=== PATIENT | female | born 1970 | race Caucasian/White ===

== ENCOUNTER 2017-04-23 22:25 | Observation (INO) | payer BC ==
[2017-04-23] MEDS ORDERED: SODIUM CHLORIDE 0.9% 1000ML 1,000 ML IV SCH (23:45)
[2017-04-23 23:52] LABS: BASOPHILS % (AUTO) 1 % (0-3); EOSINOPHILS % (AUTO) 1 % (0-9); HEMATOCRIT 41 % (35-47); MEAN CORPUSCULAR HGB CONC 32.8 gm/dl (32.0-36.0); MEAN CORPUSCULAR VOLUME 91 fL (81-99); MONOCYTES % (AUTO) 5.9 % (0-12); NEUTROPHILS % (AUTO) 87.6 % (37-80)
[2017-04-23] MEDS: SODIUM CHLORIDE 0.9% FLUSH 10 ML SOL IV PRN (23:57)
[2017-04-24 00:02] LABS: ALBUMIN 3.8 gm/dl (3.4-5.0); POTASSIUM 3.8 mMol/L (3.5-5.1)
[2017-04-24] MEDS ORDERED: KETOROLAC TROMETHAMINE 30 MG/ML SOL IV ONE (00:49)
[2017-04-24] MEDS ORDERED: KETOROLAC TROMETHAMINE 30 MG/ML SOL ONE (00:50)
[2017-04-24 00:57] LABS: APPEARANCE,URINE Clear; BILIRUBIN,URINE 1+ (NEGATIVE); COLOR,URINE Yellow; GLUCOSE, URINE (UA) NEGATIVE (NEGATIVE); KETONES,URINE TRACE (NEGATIVE); LEUKOCYTE ESTERASE ,URINE NEGATIVE (NEGATIVE); NITRATE,URINE NEGATIVE (NEGATIVE); OCCULT BLOOD,URINE NEGATIVE (NEG-TRACE); PH,URINE 5.5; UROBILINOGEN,URINE 0.2 (0.2-1.0 EU)
[2017-04-24 01:09] LABS: ICTOTEST,URINE NEGATIVE (NEGATIVE)
[2017-04-24] MEDS ORDERED: DIPHENHYDRAMINE 25 MG CAP PO PRN (01:29)
[2017-04-24] MEDS ORDERED: ACETAMI/HYDROCO 325/10 TAB PO PRN (01:29)
[2017-04-24] MEDS ORDERED: ONDANSETRON HCL 4 MG/2 ML SOL IV PRN (01:33)
[2017-04-24] MEDS ORDERED: HYDROMORPHONE 1 MG/ML SYRINGE IV PRN (01:33)
[2017-04-24] MEDS ORDERED: DEXTROSE/SALINE 0.45/KCL 20MEQ 1,000 ML/1,000 ML SOL IV ONE (01:40)
[2017-04-24] MEDS ORDERED: THIAMINE 100 MG TAB PO SCH (01:45)
[2017-04-24] MEDS: KETOROLAC TROMETHAMINE 30 MG/ML SOL IV PRN ×4 (06:33→21:44)
[2017-04-24 07:41] LABS: BASOPHILS % (AUTO) 1 % (0-3); EOSINOPHILS % (AUTO) 1 % (0-9); HEMATOCRIT 34 % (35-47); MEAN CORPUSCULAR HGB CONC 33.5 gm/dl (32.0-36.0); MEAN CORPUSCULAR VOLUME 90 fL (81-99); MONOCYTES % (AUTO) 7.3 % (0-12); NEUTROPHILS % (AUTO) 82.6 % (37-80)
[2017-04-24 07:51] LABS: CALCIUM 7.9 mg/dl (8.5-10.1); POTASSIUM 3.4 mMol/L (3.5-5.1)
[2017-04-24] MEDS ORDERED: AZITHROMYCIN 250 MG TAB PO ONE (08:30)
[2017-04-24] MEDS ORDERED: SODIUM CHLORIDE 0.9% 1000ML 1,000 ML IV ONE (08:31)
[2017-04-24] MEDS ORDERED: LORAZEPAM 2 MG/ML SOL IV ONE (08:44)
[2017-04-24] MEDS ORDERED: POTASSIUM CHLORIDE 10 MEQ TER PO SCH (09:15)
[2017-04-24] MEDS ORDERED: APAP/HYDROCODONE 325/5 TAB PO PRN (09:18)
[2017-04-24] MEDS: ENOXAPARIN 40 MG SOL SC SCH (09:34)
[2017-04-24] MEDS: PANTOPRAZOLE SODIUM 40 MG ECT PO SCH (09:37)
[2017-04-24] MEDS: BACLOFEN 10 MG TAB PO SCH ×3 (09:37→21:44)
[2017-04-24] MEDS: DULOXETINE HCL 30 MG CAPSULE.DR PO SCH ×2 (09:37→21:44)
[2017-04-24] MEDS: SODIUM CHLORIDE 0.9% FLUSH 10 ML SOL IV PRN (17:32)
[2017-04-24] MEDS: ZOLPIDEM TARTRATE 5 MG TAB PO SCH ×2 (23:14→23:37)
[2017-04-25] MEDS: KETOROLAC TROMETHAMINE 30 MG/ML SOL IV PRN ×2 (03:13→10:30)
[2017-04-25] MEDS: SODIUM CHLORIDE 0.9% FLUSH 10 ML SOL IV PRN (03:13)
[2017-04-25 07:13] VITALS: BP 149/114; PULSE 79; RESP 18; TEMP 98.2; O2SAT 99
[2017-04-25 07:53] LABS: BASOPHILS % (AUTO) 1 % (0-3); EOSINOPHILS % (AUTO) 3 % (0-9); HEMATOCRIT 33 % (35-47); MEAN CORPUSCULAR VOLUME 91 fL (81-99); MONOCYTES % (AUTO) 7.9 % (0-12); NEUTROPHILS % (AUTO) 72.4 % (37-80)
[2017-04-25 08:01] LABS: ALBUMIN 2.9 gm/dl (3.4-5.0); CALCIUM 8.4 mg/dl (8.5-10.1); POTASSIUM 3.7 mMol/L (3.5-5.1)
[2017-04-25] MEDS ORDERED: AZITHROMYCIN 250 MG TAB PO SCH (09:00)
[2017-04-25] MEDS: ENOXAPARIN 40 MG SOL SC SCH (09:24)
[2017-04-25] MEDS: PANTOPRAZOLE SODIUM 40 MG ECT PO SCH (09:33)
[2017-04-25] MEDS: DULOXETINE HCL 30 MG CAPSULE.DR PO SCH (09:33)
[2017-04-25] MEDS: BACLOFEN 10 MG TAB PO SCH (09:33)
== END 2017-04-25 10:50 | disposition home or self-care (01) ==
LOC: ED 22:25 → ACUTE CARE 04-24 01:25
PROVIDERS: ADMIT Family Medicine; ATTEND Family Medicine
DX: R41.0 Disorientation, unspecified (principal); M47.816 Spondylosis without myelopathy or radiculopathy, lumbar region; Z98.82 Breast implant status; L98.492 Non-pressure chronic ulcer of skin of other sites with fat layer exposed; J18.9 Pneumonia, unspecified organism
CPT/HCPCS: 99284 ×3; 36415; 70450; 70551; 71020; 80048; 80053 ×2; 81001; 84425; 85025 ×3; 86140; J1650; J1885 ×7; J2060; 96365; 96374; 99218; 99224; J2405; A6232; J1170

== ENCOUNTER 2018-07-18 11:22 | Inpatient (IN) | payer OTHER ==
[2018-07-18] MEDS ORDERED: ALBUTEROL NEB SOL 2.5MG/3ML 1 VIAL SOL NEB PRN (13:02)
[2018-07-18] MEDS ORDERED: CYCLOBENZAPRINE 10 MG TAB PO PRN (13:15)
[2018-07-18] MEDS ORDERED: DIPHENHYDRAMINE 25 MG CAP PO PRN (13:15)
[2018-07-18] MEDS ORDERED: LIDOCAINE 5% PATCH 1 PATCH TDM TOP PRN (13:15)
[2018-07-18] MEDS ORDERED: FUROSEMIDE 20 MG TAB PO PRN (13:15)
[2018-07-18] MEDS ORDERED: CEFTRIAXONE 1 GM PDS ONE (15:02)
[2018-07-18] MEDS ORDERED: SODIUM CHLORIDE 0.9% 50 ML 50 ML IV ONE (15:03)
[2018-07-18] MEDS: CEFTRIAXONE 1 GM PDS 1 GM in SODIUM CHLORIDE 0.9% 50 ML 50 ML IV SCH (15:10)
[2018-07-18] MEDS: SOLUMEDROL 125 MG/2 ML 125 MG/2 ML PDS IV SCH ×2 (15:11→20:38)
[2018-07-18] MEDS: GABAPENTIN 300 MG CAP PO SCH ×2 (15:12→20:29)
[2018-07-18] MEDS: ALBUTEROL/IPRATROPIUM 1 VIAL SOL INH SCH ×3 (15:13→20:28)
[2018-07-18] MEDS: APAP/HYDROCODONE 1 EACH TABLET PO PRN ×2 (15:20→20:29)
[2018-07-18] MEDS: METOPROLOL SUCCINATE 50 MG ER TAB PO SCH (15:21)
[2018-07-18] MEDS: PANTOPRAZOLE SODIUM 40 MG ECT PO SCH ×2 (15:22→20:28)
[2018-07-18] MEDS: ENOXAPARIN 40 MG SOL SC SCH (15:24)
[2018-07-18] MEDS: AZITHROMYCIN 250 MG TAB PO SCH (15:54)
[2018-07-18] MEDS: TAMSULOSIN HYDROCHLORIDE 0.4 MG CAP PO SCH (20:28)
[2018-07-18] MEDS: DULOXETINE HCL 30 MG CAPSULE.DR PO SCH (20:28)
[2018-07-18] MEDS: TEMAZEPAM 15MG 15 MG CAP PO PRN (20:29)
[2018-07-19] MEDS ORDERED: CEFTRIAXONE 1 GM PDS ONE ×2 (00:38→13:30)
[2018-07-19] MEDS ORDERED: SODIUM CHLORIDE 0.9% 50 ML 50 ML IV ONE ×2 (00:38→13:30)
[2018-07-19] MEDS: ALBUTEROL/IPRATROPIUM 1 VIAL SOL INH SCH ×6 (00:53→20:44)
[2018-07-19] MEDS: CEFTRIAXONE 1 GM PDS 1 GM in SODIUM CHLORIDE 0.9% 50 ML 50 ML IV SCH ×2 (00:55→13:35)
[2018-07-19] MEDS: APAP/HYDROCODONE 1 EACH TABLET PO PRN ×4 (04:20→20:58)
[2018-07-19] MEDS: SOLUMEDROL 125 MG/2 ML 125 MG/2 ML PDS IV SCH ×3 (04:38→20:55)
[2018-07-19] MEDS: SODIUM CHLORIDE 0.9% FLUSH 10 ML SOL IV SCH ×3 (04:39→20:45)
[2018-07-19] MEDS: DULOXETINE HCL 30 MG CAPSULE.DR PO SCH ×2 (09:05→20:45)
[2018-07-19] MEDS: FOLIC ACID 1 MG TAB PO SCH (09:05)
[2018-07-19] MEDS: MULTIVITAMIN2 1 EA TAB PO SCH (09:06)
[2018-07-19] MEDS: PANTOPRAZOLE SODIUM 40 MG ECT PO SCH ×2 (09:06→20:44)
[2018-07-19] MEDS: FUROSEMIDE 20 MG TAB PO SCH (09:06)
[2018-07-19] MEDS: METOPROLOL SUCCINATE 50 MG ER TAB PO SCH (09:06)
[2018-07-19] MEDS: GABAPENTIN 300 MG CAP PO SCH ×3 (09:06→20:45)
[2018-07-19] MEDS: CHOLECALCIFEROL 1,000 IU TAB PO SCH (09:07)
[2018-07-19] MEDS: ENOXAPARIN 40 MG SOL SC SCH (13:14)
[2018-07-19] MEDS: AZITHROMYCIN 250 MG TAB PO SCH (15:33)
[2018-07-19] MEDS: TAMSULOSIN HYDROCHLORIDE 0.4 MG CAP PO SCH (20:45)
[2018-07-19] MEDS: TEMAZEPAM 15MG 15 MG CAP PO PRN (20:58)
[2018-07-20] MEDS: ALBUTEROL/IPRATROPIUM 1 VIAL SOL INH SCH ×3 (00:08→08:53)
[2018-07-20] MEDS ORDERED: SODIUM CHLORIDE 0.9% 50 ML 50 ML IV ONE (01:15)
[2018-07-20] MEDS ORDERED: CEFTRIAXONE 1 GM PDS ONE (01:15)
[2018-07-20] MEDS: CEFTRIAXONE 1 GM PDS 1 GM in SODIUM CHLORIDE 0.9% 50 ML 50 ML IV SCH (01:21)
[2018-07-20] MEDS: SODIUM CHLORIDE 0.9% FLUSH 10 ML SOL IV SCH ×2 (01:24→06:23)
[2018-07-20 08:03] VITALS: BP 130/75; TEMP 98
[2018-07-20] MEDS: APAP/HYDROCODONE 1 EACH TABLET PO PRN (08:44)
[2018-07-20] MEDS: DULOXETINE HCL 30 MG CAPSULE.DR PO SCH (08:49)
[2018-07-20] MEDS: MULTIVITAMIN2 1 EA TAB PO SCH (08:49)
[2018-07-20] MEDS: PANTOPRAZOLE SODIUM 40 MG ECT PO SCH (08:49)
[2018-07-20] MEDS: GABAPENTIN 300 MG CAP PO SCH (08:49)
[2018-07-20] MEDS: CHOLECALCIFEROL 1,000 IU TAB PO SCH (08:49)
[2018-07-20] MEDS: METOPROLOL SUCCINATE 50 MG ER TAB PO SCH (08:50)
[2018-07-20] MEDS: FOLIC ACID 1 MG TAB PO SCH (08:50)
[2018-07-20] MEDS: FUROSEMIDE 20 MG TAB PO SCH (08:50)
[2018-07-20 09:14] VITALS: PULSE 98; RESP 20; O2SAT 96
[2018-08-07] MEDS ORDERED: CYANOCOBALAMIN 1000 MCG/ML SOL IM SCH (09:00)
== END 2018-07-20 12:35 | disposition home or self-care (01) | DRG 194 ==
LOC: ACUTE CARE 11:25
PROVIDERS: ADMIT Family Medicine; ATTEND Family Medicine
DX: J18.9 Pneumonia, unspecified organism (principal); J45.901 Unspecified asthma with (acute) exacerbation; R06.2 Wheezing; R53.81 Other malaise; I12.9 Hypertensive chronic kidney disease with stage 1 through stage 4 chronic kidney disease, or unspecified chronic kidney disease; N18.3 Chronic kidney disease, stage 3 (moderate)
CPT/HCPCS: 94150; 94640; 94664; J0696; J1650; J2930; J7613; A9270-GY

== ENCOUNTER 2018-07-29 13:07 | Inpatient (IN) | payer OTHER ==
[2018-07-29] MEDS ORDERED: LEVOFLOXACIN 25 MG/ML 750 MG in SODIUM CHLORIDE 0.9% 250 ML 150 ML IV SCH (14:00)
[2018-07-29] MEDS ORDERED: LEVOFLOXACIN 25 MG/ML SOL IV ONE (14:09)
[2018-07-29] MEDS ORDERED: SODIUM CHLORIDE 0.9% 250 ML 250 ML IV ONE (14:09)
[2018-07-29] MEDS ORDERED: ALBUTEROL NEB SOL 2.5MG/3ML 1 VIAL SOL NEB PRN (14:30)
[2018-07-29] MEDS: ALBUTEROL/IPRATROPIUM 1 VIAL SOL INH SCH ×2 (14:40→20:20)
[2018-07-29] MEDS: SODIUM CHLORIDE 0.9% FLUSH 10 ML SOL IV SCH ×2 (14:44→20:23)
[2018-07-29] MEDS ORDERED: ONDANSETRON 4 MG ODT BU PRN (18:09)
[2018-07-29] MEDS ORDERED: ZOLPIDEM TARTRATE 5 MG TAB PO PRN (23:55)
[2018-07-30] MEDS ORDERED: DICLOFENAC SODIUM APPL TD PRN (01:04)
[2018-07-30] MEDS ORDERED: ALBUTEROL HFA 60 PUFF/INHALER INH PRN (01:04)
[2018-07-30] MEDS ORDERED: TEMAZEPAM 15MG 15 MG CAP PO PRN (01:04)
[2018-07-30] MEDS ORDERED: CYCLOBENZAPRINE 10 MG TAB PO PRN (01:04)
[2018-07-30] MEDS ORDERED: ACETAMI/HYDROCO 325/10 TAB PO PRN (01:04)
[2018-07-30] MEDS ORDERED: NAPROXEN 500 MG TAB PO PRN (01:04)
[2018-07-30] MEDS: SODIUM CHLORIDE 0.9% FLUSH 10 ML SOL IV SCH ×4 (02:42→20:49)
[2018-07-30 07:12] LABS: BASOPHILS % (AUTO) 1 % (0-3); EOSINOPHILS % (AUTO) 4 % (0-9); HEMATOCRIT 36 % (35-47); HEMOGLOBIN 11.6 gm/dl (12.0-15.5); LYMPHOCYTES % (AUTO) 21.7 % (10-50); MEAN CORPUSCULAR HEMOGLOBIN 29.3 pg (27.0-32.0); MEAN CORPUSCULAR HGB CONC 32.1 gm/dl (32.0-36.0); MEAN CORPUSCULAR VOLUME 91 fL (81-99); MONOCYTES % (AUTO) 5.1 % (0-12); NEUTROPHILS % (AUTO) 68.7 % (37-80)
[2018-07-30 07:22] LABS: CALCIUM 8.8 mg/dl (8.5-10.1); CARBON DIOXIDE 33.6 mEq/L (21-32); CREATININE 1.07 mg/dl (0.60-1.00); POTASSIUM 4.2 mMol/L (3.5-5.1)
[2018-07-30] MEDS ORDERED: Non-Formulary Medication MISC (Budesonide/Formoterol 160/4.5 2 PUFF) INH SCH (09:00)
[2018-07-30] MEDS ORDERED: PANTOPRAZOLE SODIUM 40 MG ECT PO SCH (09:00)
[2018-07-30] MEDS: GABAPENTIN 300 MG CAP PO SCH ×3 (09:17→20:51)
[2018-07-30] MEDS: CHOLECALCIFEROL 1,000 IU TAB PO SCH ×2 (09:17→20:47)
[2018-07-30] MEDS: DULOXETINE HCL 30 MG CAPSULE.DR PO SCH ×2 (09:17→20:50)
[2018-07-30] MEDS: FOLIC ACID 1 MG TAB PO SCH (09:17)
[2018-07-30] MEDS: METOPROLOL SUCCINATE 50 MG ER TAB PO SCH (09:18)
[2018-07-30] MEDS: LIDOCAINE 5% PATCH 1 PATCH TDM TOP PRN (09:20)
[2018-07-30] MEDS: APAP/HYDROCODONE 1 EACH TABLET PO PRN ×3 (09:21→18:56)
[2018-07-30] MEDS: ALBUTEROL/IPRATROPIUM 1 VIAL SOL NEB SCH ×4 (09:22→20:51)
[2018-07-30] MEDS: FUROSEMIDE 20 MG TAB PO SCH (09:31)
[2018-07-30] MEDS: MULTIVITAMIN2 1 EA TAB PO SCH (11:15)
[2018-07-30] MEDS: LEVOFLOXACIN 500 MG (PREMIX) 500 MG/100 ML SOL IV SCH (13:59)
[2018-07-30] MEDS: PANTOPRAZOLE SODIUM 40 MG ECT PO SCH (20:48)
[2018-07-30] MEDS: BUDESONIDE/FORMOTEROL 160/4.5 AER INH SCH (20:51)
[2018-07-30] MEDS ORDERED: ZOLPIDEM TARTRATE 12.5 MG PO SCH (21:00)
[2018-07-30] MEDS ORDERED: TAMSULOSIN HYDROCHLORIDE 0.4 MG CAP PO SCH (21:00)
[2018-07-31] MEDS: SODIUM CHLORIDE 0.9% FLUSH 10 ML SOL IV SCH ×2 (04:56→13:55)
[2018-07-31] MEDS: APAP/HYDROCODONE 1 EACH TABLET PO PRN ×2 (05:02→09:01)
[2018-07-31 07:15] VITALS: BP 103/70; TEMP 97.9
[2018-07-31 07:21] LABS: CALCIUM 8.6 mg/dl (8.5-10.1); CARBON DIOXIDE 31.6 mEq/L (21-32); CREATININE 1.23 mg/dl (0.60-1.00)
[2018-07-31 07:23] LABS: BASOPHILS % (AUTO) 1 % (0-3); EOSINOPHILS % (AUTO) 3 % (0-9); HEMATOCRIT 36 % (35-47); HEMOGLOBIN 11.7 gm/dl (12.0-15.5); MEAN CORPUSCULAR HEMOGLOBIN 29.5 pg (27.0-32.0); MEAN CORPUSCULAR HGB CONC 32.7 gm/dl (32.0-36.0); MEAN CORPUSCULAR VOLUME 90 fL (81-99); MONOCYTES % (AUTO) 6.4 % (0-12); NEUTROPHILS % (AUTO) 66.4 % (37-80)
[2018-07-31] MEDS: ALBUTEROL/IPRATROPIUM 1 VIAL SOL NEB SCH ×3 (08:18→18:57)
[2018-07-31] MEDS: CHOLECALCIFEROL 1,000 IU TAB PO SCH (08:48)
[2018-07-31] MEDS: MULTIVITAMIN2 1 EA TAB PO SCH (08:48)
[2018-07-31] MEDS: PANTOPRAZOLE SODIUM 40 MG ECT PO SCH (08:48)
[2018-07-31] MEDS: METOPROLOL SUCCINATE 50 MG ER TAB PO SCH (08:48)
[2018-07-31] MEDS: FUROSEMIDE 20 MG TAB PO SCH (08:48)
[2018-07-31] MEDS: DULOXETINE HCL 30 MG CAPSULE.DR PO SCH (08:48)
[2018-07-31] MEDS: FOLIC ACID 1 MG TAB PO SCH (08:48)
[2018-07-31] MEDS: GABAPENTIN 300 MG CAP PO SCH ×2 (08:48→13:49)
[2018-07-31] MEDS: BUDESONIDE/FORMOTEROL 160/4.5 AER INH SCH (08:49)
[2018-07-31] MEDS: LIDOCAINE 5% PATCH 1 PATCH TDM TOP PRN (09:01)
[2018-07-31 13:31] VITALS: PULSE 90
[2018-07-31] MEDS: LEVOFLOXACIN 500 MG (PREMIX) 500 MG/100 ML SOL IV SCH (13:55)
[2018-07-31 14:11] VITALS: RESP 14; O2SAT 96
[2018-08-07] MEDS ORDERED: CYANOCOBALAMIN 1000 MCG/ML SOL IM SCH (09:00)
== END 2018-07-31 17:00 | disposition home or self-care (01) | DRG 195 ==
LOC: ACUTE CARE 13:19
PROVIDERS: ADMIT Family Medicine; ATTEND Family Medicine
DX: J18.1 Lobar pneumonia, unspecified organism (principal); R06.02 Shortness of breath; R50.9 Fever, unspecified
CPT/HCPCS: 36415; 80048; 85025; 85378; 87040; 94150; 94640; 94664; 94669; J1956; J7613; A9270-GY

== ENCOUNTER 2018-11-03 10:48 | Inpatient (IN) | payer OTHER ==
[2018-11-03] MEDS ORDERED: ALBUTEROL/IPRATROPIUM 1 VIAL SOL INH ONE (11:01)
[2018-11-03] MEDS ORDERED: ALBUTEROL/IPRATROPIUM 1 VIAL SOL ONE ×2 (11:02→11:22)
[2018-11-03] MEDS ORDERED: SOLUMEDROL 125 MG/2 ML 125 MG/2 ML PDS IV ONE (11:04)
[2018-11-03] MEDS: ALBUTEROL/IPRATROPIUM 1 VIAL SOL INH ONE ×2 (11:04→11:40)
[2018-11-03 11:25] LABS: BASOPHILS % (AUTO) 1 % (0-3); EOSINOPHILS % (AUTO) 3 % (0-9); HEMATOCRIT 39 % (35-47); LYMPHOCYTES % (AUTO) 8.1 % (10-50); MEAN CORPUSCULAR HEMOGLOBIN 28.9 pg (27.0-32.0); MEAN CORPUSCULAR HGB CONC 30.8 gm/dl (32.0-36.0); MEAN CORPUSCULAR VOLUME 94 fL (81-99); MONOCYTES % (AUTO) 3.3 % (0-12); NEUTROPHILS % (AUTO) 85.3 % (37-80)
[2018-11-03] MEDS ORDERED: SOLUMEDROL 125 MG/2 ML 125 MG/2 ML PDS ONE (11:28)
[2018-11-03 11:40] LABS: BLOOD UREA NITROGEN 27 mg/dl (7-18); CALCIUM 9.8 mg/dl (8.5-10.1); CARBON DIOXIDE 30.2 mEq/L (21-32); CHLORIDE 101 mMol/L (98-107); CREATININE 1.13 mg/dl (0.60-1.00); GLUCOSE 120 mg/dl (74-106); SODIUM 138 mMol/L (136-145); TROP I < 0.017 ng/ml (0.000-0.056)
[2018-11-03 12:00] LABS: CRP INFLAMMATORY 31.22 mg/dl (0.00-0.33)
[2018-11-03] MEDS ORDERED: SODIUM CHLORIDE 0.9% 1000ML 1,000 ML IV SCH (12:15)
[2018-11-03 13:58] LABS: APPEARANCE,URINE Slightly Cloudy; BILIRUBIN,URINE NEGATIVE (NEGATIVE); COLOR,URINE Yellow; GLUCOSE, URINE (UA) NEGATIVE (NEGATIVE); KETONES,URINE NEGATIVE (NEGATIVE); LEUKOCYTE ESTERASE ,URINE TRACE (NEGATIVE); NITRATE,URINE NEGATIVE (NEGATIVE); OCCULT BLOOD,URINE NEGATIVE (NEG-TRACE); PH,URINE 6.5; UROBILINOGEN,URINE 0.2 (0.2-1.0 EU)
[2018-11-03 14:15] LABS: BACTERIA TRACE (< 1+); CRYSTALS NEGATIVE (0-3 AVE/HPF); RBC,URINE NEG (0-3AV/HPF)
[2018-11-03] MEDS ORDERED: VANCOMYCIN HCL 500 MG PDS 1,500 MG in SODIUM CHLORIDE 0.9% 500 ML 500 ML IV SCH (14:15)
[2018-11-03] MEDS ORDERED: VANCOMYCIN HYDROCHLORIDE 500 MG PDS IV ONE (14:31)
[2018-11-03 15:13] LABS: INFLUENZA A NEGATIVE (NEGATIVE); INFLUENZA B NEGATIVE (NEGATIVE)
[2018-11-03] MEDS ORDERED: ALBUTEROL NEB SOL 2.5MG/3ML 1 VIAL SOL NEB PRN (16:36)
[2018-11-03] MEDS ORDERED: LEVOFLOXACIN 750MG/150 ML (PM) 750 MG/150 ML SOL IV SCH (17:45)
[2018-11-03] MEDS ORDERED: LEVOFLOXACIN 25 MG/ML SOL IV ONE (18:35)
[2018-11-03] MEDS: ALBUTEROL/IPRATROPIUM 1 VIAL SOL INH SCH (18:42)
[2018-11-03] MEDS ORDERED: CYANOCOBALAMIN 1000 MCG/ML SOL IM SCH (18:45)
[2018-11-03] MEDS: SODIUM CHLORIDE 0.9% 1000ML 1,000 ML IV SCH (18:54)
[2018-11-03] MEDS ORDERED: APAP/HYDROCODONE 1 EACH TABLET ONE (21:42)
[2018-11-03] MEDS: DULOXETINE HCL 30 MG CAPSULE.DR PO SCH (21:52)
[2018-11-03] MEDS: ALBUTEROL/IPRATROPIUM 1 VIAL SOL NEB SCH (21:53)
[2018-11-03] MEDS: PANTOPRAZOLE SODIUM 40 MG ECT PO SCH (21:54)
[2018-11-03] MEDS: GABAPENTIN 300 MG CAP PO SCH (21:54)
[2018-11-03] MEDS: SOLUMEDROL 125 MG/2 ML 125 MG/2 ML PDS IV SCH (21:56)
[2018-11-03] MEDS: ZOLPIDEM TARTRATE 5 MG TAB PO PRN (21:57)
[2018-11-03] MEDS: BUDESONIDE/FORMOTEROL 160/4.5 AER INH SCH (21:58)
[2018-11-03] MEDS: ACETAMI/HYDROCO 325/10 TAB PO PRN (22:12)
[2018-11-04] MEDS: ALBUTEROL/IPRATROPIUM 1 VIAL SOL INH SCH (00:03)
[2018-11-04] MEDS: SOLUMEDROL 125 MG/2 ML 125 MG/2 ML PDS IV SCH ×4 (02:49→20:21)
[2018-11-04] MEDS: SODIUM CHLORIDE 0.9% 1000ML 1,000 ML IV SCH ×2 (06:48→18:05)
[2018-11-04 07:18] LABS: BASOPHILS % (AUTO) 0 % (0-3); EOSINOPHILS % (AUTO) 0 % (0-9); HEMATOCRIT 36 % (35-47); LYMPHOCYTES % (AUTO) 3.7 % (10-50); MEAN CORPUSCULAR HEMOGLOBIN 28.7 pg (27.0-32.0); MEAN CORPUSCULAR HGB CONC 30.6 gm/dl (32.0-36.0); MEAN CORPUSCULAR VOLUME 94 fL (81-99); MONOCYTES % (AUTO) 1.7 % (0-12); NEUTROPHILS % (AUTO) 94.5 % (37-80)
[2018-11-04 07:25] LABS: ALBUMIN 2.8 gm/dl (3.4-5.0); BILIRUBIN,TOTAL 0.5 mg/dl (0.2-1.0); CALCIUM 8.9 mg/dl (8.5-10.1); CARBON DIOXIDE 29.1 mEq/L (21-32); CREATININE 1.04 mg/dl (0.60-1.00); POTASSIUM 4.1 mMol/L (3.5-5.1); TOTAL PROTEIN 6.7 gm/dl (6.4-8.2)
[2018-11-04] MEDS: GABAPENTIN 300 MG CAP PO SCH ×3 (08:15→20:19)
[2018-11-04] MEDS: DULOXETINE HCL 30 MG CAPSULE.DR PO SCH ×2 (08:15→20:18)
[2018-11-04] MEDS: PANTOPRAZOLE SODIUM 40 MG ECT PO SCH ×2 (08:16→20:19)
[2018-11-04] MEDS: FOLIC ACID 1 MG TAB PO SCH (08:16)
[2018-11-04] MEDS: METOPROLOL SUCCINATE 50 MG ER TAB PO SCH (08:20)
[2018-11-04] MEDS: ALBUTEROL/IPRATROPIUM 1 VIAL SOL NEB SCH ×4 (08:23→20:23)
[2018-11-04] MEDS ORDERED: APAP/HYDROCODONE 1 EACH TABLET ONE (08:36)
[2018-11-04] MEDS: ACETAMI/HYDROCO 325/10 TAB PO PRN (08:38)
[2018-11-04] MEDS ORDERED: CEFTRIAXONE 1 GM PDS 2 GM in SODIUM CHLORIDE 0.9% 100 ML 100 ML IV ONE (09:31)
[2018-11-04] MEDS ORDERED: SODIUM CHLORIDE 0.9% 100 ML 100 ML IV ONE (10:11)
[2018-11-04] MEDS ORDERED: CEFTRIAXONE 1 GM PDS ONE (10:11)
[2018-11-04] MEDS: BUDESONIDE/FORMOTEROL 160/4.5 AER INH SCH ×2 (10:20→20:18)
[2018-11-04] MEDS: METRONIDAZOLE 500 MG (PREMIX) 500 MG/100 ML SOL IV SCH ×2 (11:33→18:01)
[2018-11-04] MEDS: OXYCODONE HYDROCHLORIDE 5 MG TAB PO SCH ×2 (13:28→20:20)
[2018-11-04] MEDS ORDERED: OXYCODONE HYDROCHLORIDE 5 MG TAB PO SCH ×2 (14:00→23:30)
[2018-11-05] MEDS: METRONIDAZOLE 500 MG (PREMIX) 500 MG/100 ML SOL IV SCH ×3 (01:29→18:07)
[2018-11-05] MEDS: ALBUTEROL NEB SOL 2.5MG/3ML 1 VIAL SOL NEB PRN ×4 (02:53→14:28)
[2018-11-05] MEDS: SOLUMEDROL 125 MG/2 ML 125 MG/2 ML PDS IV SCH ×2 (02:53→09:57)
[2018-11-05] MEDS: SODIUM CHLORIDE 0.9% 1000ML 1,000 ML IV SCH (05:40)
[2018-11-05 07:16] LABS: CALCIUM 8.8 mg/dl (8.5-10.1); CARBON DIOXIDE 26.5 mEq/L (21-32); CREATININE 1.04 mg/dl (0.60-1.00); POTASSIUM 4.2 mMol/L (3.5-5.1)
[2018-11-05 07:18] LABS: BASOPHILS % (AUTO) 0 % (0-3); EOSINOPHILS % (AUTO) 0 % (0-9); HEMATOCRIT 35 % (35-47); HEMOGLOBIN 11.2 gm/dl (12.0-15.5); LYMPHOCYTES % (AUTO) 3.1 % (10-50); MEAN CORPUSCULAR HEMOGLOBIN 29.4 pg (27.0-32.0); MEAN CORPUSCULAR HGB CONC 31.6 gm/dl (32.0-36.0); MEAN CORPUSCULAR VOLUME 93 fL (81-99); NEUTROPHILS % (AUTO) 93.7 % (37-80)
[2018-11-05] MEDS: PANTOPRAZOLE SODIUM 40 MG ECT PO SCH ×2 (09:42→20:51)
[2018-11-05] MEDS: DULOXETINE HCL 30 MG CAPSULE.DR PO SCH ×2 (09:45→20:51)
[2018-11-05] MEDS: GABAPENTIN 300 MG CAP PO SCH ×3 (09:45→20:52)
[2018-11-05] MEDS: FOLIC ACID 1 MG TAB PO SCH (09:46)
[2018-11-05] MEDS: METOPROLOL SUCCINATE 50 MG ER TAB PO SCH (09:47)
[2018-11-05] MEDS: OXYCODONE HYDROCHLORIDE 5 MG TAB PO SCH ×3 (09:54→19:55)
[2018-11-05] MEDS: BUDESONIDE/FORMOTEROL 160/4.5 AER INH SCH ×2 (10:19→20:50)
[2018-11-05] MEDS ORDERED: CEFEPIME HYDROCHLORIDE 2 GM PDS IV SCH (10:45)
[2018-11-05] MEDS: ALBUTEROL/IPRATROPIUM 1 VIAL SOL NEB SCH ×4 (12:40→20:53)
[2018-11-05] MEDS ORDERED: ACETAMINOPHEN 325 MG PO PRN (13:03)
[2018-11-05] MEDS: CEFEPIME HYDROCHLORIDE 2 GM PDS IV SCH (17:28)
[2018-11-05] MEDS: ZOLPIDEM TARTRATE 5 MG TAB PO PRN (21:05)
[2018-11-06] MEDS ORDERED: OXYCODONE HYDROCHLORIDE 5 MG TAB PO SCH
[2018-11-06] MEDS: METRONIDAZOLE 500 MG (PREMIX) 500 MG/100 ML SOL IV SCH (01:34)
[2018-11-06] MEDS: ALBUTEROL NEB SOL 2.5MG/3ML 1 VIAL SOL NEB PRN (04:49)
[2018-11-06] MEDS: CEFEPIME HYDROCHLORIDE 2 GM PDS IV SCH (05:22)
[2018-11-06] MEDS: OXYCODONE HYDROCHLORIDE 5 MG TAB PO SCH (06:06)
[2018-11-06 07:50] VITALS: BP 137/90; TEMP 97.6
[2018-11-06] MEDS: ALBUTEROL/IPRATROPIUM 1 VIAL SOL NEB SCH (08:21)
[2018-11-06] MEDS: METOPROLOL SUCCINATE 50 MG ER TAB PO SCH (08:23)
[2018-11-06] MEDS: GABAPENTIN 300 MG CAP PO SCH (08:23)
[2018-11-06] MEDS: DULOXETINE HCL 30 MG CAPSULE.DR PO SCH (08:23)
[2018-11-06 08:24] VITALS: RESP 24
[2018-11-06] MEDS: PANTOPRAZOLE SODIUM 40 MG ECT PO SCH (08:24)
[2018-11-06] MEDS: FOLIC ACID 1 MG TAB PO SCH (08:24)
[2018-11-06] MEDS: BUDESONIDE/FORMOTEROL 160/4.5 AER INH SCH (08:26)
[2018-11-06] MEDS ORDERED: ONDANSETRON HCL 4 MG/2 ML SOL IV PRN (08:49)
[2018-11-06] MEDS ORDERED: ENOXAPARIN 40 MG SOL SC ONE (08:54)
[2018-11-06 09:00] VITALS: O2SAT 90
[2018-11-06] MEDS ORDERED: ENOXAPARIN SODIUM 120 MG/0.8 ML SYRINGE SQ SCH (09:00)
[2018-11-06] MEDS ORDERED: PREDNISONE 20 MG TAB PO SCH (09:00)
[2018-11-06 09:01] VITALS: PULSE 94
[2018-11-06 09:03] LABS: ABG PH 7.4 (7.35-7.45)
== END 2018-11-06 09:18 | disposition short-term general hospital (02) | DRG 194 ==
LOC: ED 10:48 → UNDOADMIN 15:33 → ACUTE CARE 15:33
PROVIDERS: ADMIT Family Medicine; ATTEND Family Medicine
DX: J18.1 Lobar pneumonia, unspecified organism (principal); N17.9 Acute kidney failure, unspecified; R06.02 Shortness of breath; G89.29 Other chronic pain; I10 Essential (primary) hypertension; K21.9 Gastro-esophageal reflux disease without esophagitis; R55 Syncope and collapse
CPT/HCPCS: 36415; 36600; 71045; 71046; 71275; 80048; 80053; 81001; 82803; 83880; 84484; 85025; 85378; 87088; 87280; 87430; 87804; 93005; 94150; 94640; 94669; 94762; 99070; 99285; J0692; J0696; J1650; J1956; J2405; J2930; J3370; J3420; J7613; Q9967; A9270-GY; J3490

== ENCOUNTER 2019-05-11 11:06 | Outpatient (CLI) | payer OTHER | END 2019-05-11 11:07 | disposition home or self-care (01) | DRG 554 | LOC: CONVCARE 11:06 | PROVIDERS: ATTEND Orthopaedic Surgery | DX: M94.261 Chondromalacia, right knee (principal); S50.02XA Contusion of left elbow, initial encounter | CPT/HCPCS: 73070 ==